=== PATIENT | male | born 1990 | race African-American/Black ===

== ENCOUNTER 2016-09-21 14:41 | Emergency (ER) | payer OTHER ==
[~2016-09-21] VITALS: Ht 195.6 cm; Wt 99.8 kg
[2016-09-21 14:57] VITALS: BP 135/80
[2016-09-21] MEDS ORDERED: METH-37 PO (15:22)
[2016-09-21] MEDS ORDERED: TRAM-48 PO (15:22)
--- NOTE | 2016-09-21 15:22 | PHYS DOC ---
Past Medical History Past Medical History: Other Additional Past Medical Histor: chronic back pain Past Surgical History: No Surgical History Alcohol Use: None Drug Use: Marijuana Adult General Chief Complaint Chief Complaint: THUMB HPI HPI Patient is a 26 year old male with history of chronic low back pain who presents today with 2 complaints. Patient would like his left thumb looked at. He states he sustained a laceration weeks ago. He states he is currently out of his pain medicine for his chronic back pain which he states used to help with the thumb pain. He states he is not able to see his PCP for his chronic back pain because he has a medical bill and he cannot pay it. He is requesting oxycodone 10/325 mg refill for chronic pain. Patient denies any loss of bowel/ bladder function with his back pain. Denies any injury to his back. Review of Systems Review of Systems Constitutional: Denies fever or chills [] Eyes: Denies change in visual acuity, redness, or eye pain [] GI: Denies abdominal pain, nausea, vomiting, bloody stools or diarrhea [] : Denies dysuria or hematuria [] Musculoskeletal: Chronic back pain Integument: Left thumb laceration Neurologic: Denies headache, focal weakness or sensory changes [] Endocrine: Denies polyuria or polydipsia [] Allergies Allergies Allergies Coded Allergies Type Severity Reaction Last Updated Verified No Known Drug Allergies 04/22/13 No Physical Exam Physical Exam Constitutional: Well developed, well nourished, no acute distress, non-toxic appearance. [] HENT: Normocephalic, atraumatic, bilateral external ears normal, oropharynx moist, no oral exudates, nose normal. [] Abdomen: Bowel sounds normal, soft, no tenderness, no masses, no pulsatile masses. [] Skin: Warm, dry, no erythema, no rash. [] Back: No tenderness, no CVA tenderness. [] Extremities: Left medial thumb at the PIP joint with a well healed wound with a scab. Full range of motion to the left thumb. +2 left radial pulse. Cap refill less than 2 seconds and left fingers. Sensation intact to the left thumb. Adequate radial sensation to the left thumb Neurologic: Alert and oriented X 3, normal motor function, normal sensory function, no focal deficits noted. [] Psychologic: Affect normal, judgement normal, mood normal. [] Current Patient Data Vital Signs Vital Signs Date Time Temp Pulse Resp B/P (MAP) Pulse Ox O2 Delivery O2 Flow Rate FiO2 09/21/16 14:57 98.1 89 18 99 Room Air 98.1 EKG EKG [] Radiology/Procedures Radiology/Procedures [] Course & Med Decision Making Course & Med Decision Making Pertinent Labs and Imaging studies reviewed. (See chart for details) Patient is in the ED requesting refills for oxycodone 10325 for chronic back pain as well as he would like to be assessed for a laceration on the left thumb that he sustained weeks ago. The laceration site has healed, there is a tiny scab over the area. I provided this patient a hand surgeon for follow-up. Informed patient I will not refill his oxycodone prescription. Gave him a prescription for Ultram and Robaxin Dragon Disclaimer Dragon Disclaimer This electronic medical record was generated, in whole or in part, using a voice recognition dictation system. Departure Departure Impression: Primary Impression: Chronic back pain Additional Impression: Laceration of left hand Disposition: HOME, SELF-CARE Condition: STABLE Referrals: NO PCP (PCP) call [facility] at [phone] RADHA LEA MD follow up for chronic back pain and medication refill Patient Instructions: Back Pain, Adult, Laceration Care, Adult Additional Instructions: You were seen for chronic back pain. We will not refill your prescription for pain medicine. Follow-up with the provided hand surgeon by calling [facility] and requesting a hand doctor. Follow up with your doctor for medication refill Scripts Tramadol Hcl (ULTRAM) 50 Mg Tablet 1 TAB PO Q6HRS, #30 TAB Prov: GEORGETTE JEFFERSON APRN 09/21/16 Methocarbamol (ROBAXIN) 500 Mg Tablet 1 TAB PO TID, #30 TAB Prov: GEORGETTE JEFFERSON APRN 09/21/16 Problem Qualifiers Primary Impression: Chronic back pain Back pain location: low back pain Back pain laterality: bilateral Sciatica presence: without sciatica Qualified Codes: M54.5 - Low back pain; G89.29 - Other chronic pain Additional Impression: Laceration of left hand Encounter type: initial encounter Foreign body presence: unspecified Qualified Codes: S61.412A - Laceration without foreign body of left hand, initial encounter GEORGETTE JEFFERSON APRN Sep 21, 2016 15:22
== END 2016-09-21 15:27 | disposition home or self-care (01) ==
LOC: ER 14:41
DX: S61.412A Laceration without foreign body of left hand, initial encounter (principal); M54.5 Low back pain; G89.29 Other chronic pain; F12.10 Cannabis abuse, uncomplicated; X58.XXXA Exposure to other specified factors, initial encounter; Y93.89 Activity, other specified; Y99.8 Other external cause status; Y92.89 Other specified places as the place of occurrence of the external cause
CPT/HCPCS: 99283